=== PATIENT | female | born 1980 | race African-American/Black ===

== ENCOUNTER 2016-10-15 10:09 | Emergency (ER) | payer MEDICAID ==
[~2016-10-15] VITALS: Ht 167.6 cm; Wt 70.0 kg
[~2016-10-15 10:09] MED LIST: ALBU1AER INH; ALBU6.7H INH; ALBU8I INH; BECL0.07 INH; DEPA125C PO; IBUP800T23 PO; IMIP10TA PO; INDO50CA PO; METH500T3 PO; PALI234P IM; RISP4TAB41 PO
[2016-10-15 10:12] VITALS: BP 144/66; PULSE 76; RESP 24; TEMP 98.2; O2SAT 98
[2016-10-15] MEDS ORDERED: PRED50 PO (11:55)
[2016-10-15] MEDS ORDERED: VENTAER INH (11:55)
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
== END 2016-10-15 12:21 | disposition home or self-care (01) ==
LOC: NEPB 10:09
DX: J45.901 Unspecified asthma with (acute) exacerbation (principal); F17.200 Nicotine dependence, unspecified, uncomplicated
CPT/HCPCS: 99282

== ENCOUNTER 2017-02-10 16:39 | Emergency (ER) | payer OTHER, MEDICAID ==
[~2017-02-10] VITALS: Ht 167.6 cm; Wt 76.0 kg
[~2017-02-10 16:39] MED LIST changes: +PRED50 PO; +VENTAER INH
[2017-02-10 16:42] VITALS: BP 143/90; PULSE 74; RESP 20; TEMP 98.4; O2SAT 99
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
== END 2017-02-10 18:49 | disposition home or self-care (01) ==
LOC: NEPK 16:39
DX: S83.91XA Sprain of unspecified site of right knee, initial encounter (principal); J45.909 Unspecified asthma, uncomplicated; F31.9 Bipolar disorder, unspecified; G40.909 Epilepsy, unspecified, not intractable, without status epilepticus; F20.9 Schizophrenia, unspecified; F17.200 Nicotine dependence, unspecified, uncomplicated; Z79.899 Other long term (current) drug therapy; Z88.0 Allergy status to penicillin; V13.4XXA Pedal cycle driver injured in collision with car, pick-up truck or van in traffic accident, initial encounter
CPT/HCPCS: 73564; 99283; E0113

== ENCOUNTER 2017-05-06 19:04 | Emergency (ER) | payer MEDICAID ==
[~2017-05-06] VITALS: Ht 165.1 cm; Wt 60.0 kg
[2017-05-06 19:15] VITALS: BP 145/79; PULSE 88; RESP 16; TEMP 98.7; O2SAT 99
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
[2017-05-06] MEDS ORDERED: ALBUAER3 INH (19:35)
[2017-05-06] MEDS ORDERED: PRED20 PO (19:35)
[2017-05-06] MEDS ORDERED: NEBUKIT5 ×2 (19:35→19:47)
[2017-05-06] MEDS ORDERED: CLOT10TR PO (19:35)
[2017-05-06] MEDS ORDERED: ALBU0.08 NEB (19:35)
--- NOTE | 2017-05-06 19:53 | RADRPT ---
EXAM DATE/TIME: 05/06/2017 20:22 [facility] COMPARISON: CHEST PA & LAT, October 23, 2014, 8:56. INDICATIONS : Chest pain, short of breath. MEDICAL HISTORY : None. SURGICAL HISTORY : None. ENCOUNTER: Initial ACUITY: 1 day PAIN SCORE: 0/10 LOCATION: Bilateral chest FINDINGS: The lungs are clear without infiltrate, nodule, or mass. There is no appreciable pleural effusion fo r technique. Heart and mediastinum are unremarkable. CONCLUSION: No acute cardiopulmonary disease. Iris Wolf MD on May 06, 2017 at 19:52 Board Certified Radiologist. This report was verified electronically.
[2017-05-06 20:44] VITALS: BP 142/80
--- NOTE | 2017-05-07 14:02 | EKG ---
Date Performed: 05/06/2017 Time Performed: 20:11:11 PTAGE: 37 years EKG: Sinus rhythm POSSIBLE LEFT ATRIAL ENLARGEMENT NONSPECIFIC T-WAVE ABNORMALITY BORDERLINE ECG PREVIOUS TRACING : 08/12/2011 09.50 DOCTOR: Varun Grajeda Interpretating Date/Time 05/07/2017 13:56:12
== END 2017-05-06 21:20 | disposition home or self-care (01) ==
LOC: NEPE 19:04
DX: J45.901 Unspecified asthma with (acute) exacerbation (principal); B37.0 Candidal stomatitis; F17.200 Nicotine dependence, unspecified, uncomplicated
CPT/HCPCS: 71010; 93005; 94664; 99284